=== PATIENT | female | born 2000 | race Hispanic/Latino ===

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

== ENCOUNTER 2018-05-14 19:32 | Emergency (ER) | payer OTHER ==
[2018-05-14] MEDS ORDERED: ACETAMINOPHEN 500 MG TAB ONE (20:36)
--- NOTE | 2018-05-14 21:15 | ER ---
Nurse's Notes [facility] Name: Milena Chew Age: 18 yrs Sex: Female : 2000 Arrival Date: 05/14/2018 Time: 19:34 Bed 21 Private MD: Diagnosis: Influenza due to identified novel influenza A virus Presentation: 05/14 19:36 Presenting complaint: Patient states: that that she has a runny nose, sore throat, fc nausea, cough that started 2 days ago. Transition of care: patient was not received from another setting of care. Onset of symptoms was May 12, 2018. Risk Assessment: Do you want to hurt yourself or someone else? Patient reports no desire to harm self or others. Initial Sepsis Screen: Does the patient meet any 2 criteria? HR > 90 bpm. Yes Does the patient have a suspected source of infection? No. Patient's initial sepsis screen is negative. Care prior to arrival: None. 19:36 Method Of Arrival: Ambulatory 19:36 Acuity: WILLIAM 4 fc DAYCARE DIRECTOR: 19:37 LMP 05/06/2018 fc Historical: - Allergies: 19:37 No Known Allergies; fc - Home Meds: 19:37 Vitamin Oral tab 1 tab once daily [Active]; fc - PMHx: 19:37 None; fc - PSHx: 19:37 None; fc - Immunization history:: Last tetanus immunization: up to date. - Social history:: Smoking status: Patient/guardian denies using tobacco. - Ebola Screening: : Patient negative for fever greater than or equal to 101.5 degrees Fahrenheit, and additional compatible Ebola Virus Disease symptoms Patient denies exposure to infectious person Patient denies travel to an Ebola-affected area in the 21 days before illness onset. Screenin:32 Abuse screen: Denies threats or abuse. Denies injuries from another. Nutritional mg2 screening: No deficits noted. Tuberculosis screening: No symptoms or risk factors identified. Fall Risk None identified. Assessment: 21:30 General: Appears in no apparent distress. comfortable, Behavior is calm, cooperative. mg2 Pain: Complains of pain in throat Pain does not radiate. Pain currently is 2 out of 10 on a pain scale. Quality of pain is described as aching, Pain began gradually, 2-3 days ago. Is intermittent. Neuro: Level of Consciousness is awake, alert, obeys commands, Oriented to person, place, time, situation. Neuro: Reports headache. Cardiovascular: Capillary refill < 3 seconds Patient's skin is warm and dry. Respiratory: Airway is patent Respiratory effort is even, unlabored, Respiratory pattern is regular, symmetrical. Respiratory: Reports cough that is congestion. GI: Abdomen is flat, non-distended. : No signs and/or symptoms were reported regarding the genitourinary system. EENT: Throat is reddened. Derm: Skin is intact, is healthy with good turgor, Skin is pink, warm \T\ dry. normal. Musculoskeletal: No signs and/or symptoms reported regarding the musculoskeletal system. Vital Signs: 19:38 BP 108 / 73; Pulse 116; Resp 20; Temp 100.8(O); Pulse Ox 99% on R/A; Weight 66.22 kg (R); Height 4 ft. 11 in. (149.86 cm) (R); Pain 8/10; 21:55 BP 110 / 78; Pulse 90; Resp 18; Temp 98.8(TE); Pulse Ox 100% on R/A; Pain 0/10; mg2 19:38 Body Mass Index 29.49 (66.22 kg, 149.86 cm) ED Course: 19:34 Patient arrived in ED. am2 19:37 Triage completed. 19:37 Arm band placed on Patient placed in an exam room, on a stretcher. 19:56 [facility] [place] 19:56 Denis De La Torre MD is Attending Physician. jr8 20:10 Justice Coppola RN is Primary Nurse. mg2 21:32 Patient has correct armband on for positive identification. mg2 21:32 No provider procedures requiring assistance completed. Patient did not have IV access mg2 during this emergency room visit. Administered Medications: 20:36 Drug: Tylenol 1000 mg Route: PO; mg2 Outcome: 21:14 Discharge ordered by . jr8 21:55 Discharged to home ambulatory, with family. mg2 21:55 Condition: stable 21:55 Discharge instructions given to patient, family, Instructed on discharge instructions, follow up and referral plans. medication usage, Demonstrated understanding of instructions, follow-up care, medications, Prescriptions given X 3. 21:55 Patient left the ED. mg2 Signatures: Jane Scott RN RN Yamil Millan PA PA jr8 Lanny Krishna am2 Justice Coppola RN RN mg2 Corrections: (The following items were deleted from the chart) 19:40 19:36 Initial Sepsis Screen: Does the patient meet any 2 criteria? No. Patient's fc initial sepsis screen is negative. Does the patient have a suspected source of infection? No. Patient's initial sepsis screen is negative. fc
--- NOTE | 2018-05-14 21:15 | EDPHYS ---
Physician Documentation [facility] Name: Milena Chew Age: 18 yrs Sex: Female : 2000 Arrival Date: 05/14/2018 Time: 19:34 Bed 21 Private MD: ED Physician Denis De La Torre HPI: 05/14 20:36 This 18 yrs old Female presents to ER via Ambulatory with complaints of Cough, jr8 Nausea, Runny Nose, Headache. 20:36 The patient or guardian reports cough, that is intermittent, described as mild, with no jr8 sputum. Onset: The symptoms/episode began/occurred gradually, 2 day(s) ago. Severity of symptoms: At their worst the symptoms were moderate, in the emergency department the symptoms are unchanged. Modifying factors: The symptoms are alleviated by nothing, the symptoms are aggravated by nothing. Associated signs and symptoms: Pertinent positives: fever, nausea, rhinorrhea, sore throat, vomiting. The patient has not experienced similar symptoms in the past. The patient has not recently seen a physician. BRAND ADVISOR: 19:37 LMP 05/06/2018 fc Historical: - Allergies: 19:37 No Known Allergies; fc - Home Meds: 19:37 Vitamin Oral tab 1 tab once daily [Active]; fc - PMHx: 19:37 None; fc - PSHx: 19:37 None; fc - Immunization history:: Last tetanus immunization: up to date. - Social history:: Smoking status: Patient/guardian denies using tobacco. - Ebola Screening: : Patient negative for fever greater than or equal to 101.5 degrees Fahrenheit, and additional compatible Ebola Virus Disease symptoms Patient denies exposure to infectious person Patient denies travel to an Ebola-affected area in the 21 days before illness onset. ROS: 20:36 Eyes: Negative for injury, pain, redness, and discharge, Neck: Negative for injury, jr8 pain, and swelling, Cardiovascular: Negative for chest pain, palpitations, and edema, Back: Negative for injury and pain, MS/Extremity: Negative for injury and deformity, Skin: Negative for injury, rash, and discoloration, Neuro: Negative for headache, weakness, numbness, tingling, and seizure. 20:36 Constitutional: Positive for body aches, chills, fever, malaise. 20:36 ENT: Positive for rhinorrhea, sinus congestion, sore throat, Negative for drainage from ear(s), ear pain. 20:36 Respiratory: Positive for cough, Negative for shortness of breath, sputum production, wheezing. 20:36 Abdomen/GI: Positive for nausea, vomiting, and diarrhea, Negative for abdominal pain, abdominal cramps, abdominal distension, hematemesis, black/tarry stool, rectal pain, rectal bleeding, bowel incontinence, flatulence. Exam: 20:36 Eyes: Pupils equal round and reactive to light, extra-ocular motions intact. Lids and jr8 lashes normal. Conjunctiva and sclera are non-icteric and not injected. Cornea within normal limits. Periorbital areas with no swelling, redness, or edema. ENT: Nares patent. No nasal discharge, no septal abnormalities noted. Tympanic membranes are normal and external auditory canals are clear. Oropharynx with no redness, swelling, or masses, exudates, or evidence of obstruction, uvula midline. Mucous membranes moist. Neck: Trachea midline, no thyromegaly or masses palpated, and no cervical lymphadenopathy. Supple, full range of motion without nuchal rigidity, or vertebral point tenderness. No Meningismus. Cardiovascular: Regular rate and rhythm with a normal S1 and S2. No gallops, murmurs, or rubs. Normal PMI, no JVD. No pulse deficits. Respiratory: Lungs have equal breath sounds bilaterally, clear to auscultation and percussion. No rales, rhonchi or wheezes noted. No increased work of breathing, no retractions or nasal flaring. Abdomen/GI: Soft, non-tender, with normal bowel sounds. No distension or tympany. No guarding or rebound. No evidence of tenderness throughout. Back: No spinal tenderness. No costovertebral tenderness. Full range of motion. Skin: Warm, dry with normal turgor. Normal color with no rashes, no lesions, and no evidence of cellulitis. MS/ Extremity: Pulses equal, no cyanosis. Neurovascular intact. Full, normal range of motion. Neuro: Awake and alert, GCS 15, oriented to person, place, time, and situation. Cranial nerves II-XII grossly intact. Motor strength 5/5 in all extremities. Sensory grossly intact. Cerebellar exam normal. Normal gait. Vital Signs: 19:38 BP 108 / 73; Pulse 116; Resp 20; Temp 100.8(O); Pulse Ox 99% on R/A; Weight 66.22 kg fc (R); Height 4 ft. 11 in. (149.86 cm) (R); Pain 8/10; 21:55 BP 110 / 78; Pulse 90; Resp 18; Temp 98.8(TE); Pulse Ox 100% on R/A; Pain 0/10; mg2 19:38 Body Mass Index 29.49 (66.22 kg, 149.86 cm) MDM: 19:56 Patient medically screened. jr8 21:13 Data reviewed: vital signs, nurses notes, lab test result(s), Flu: positive and as a jr8 result, I will discharge patient. Data interpreted: Pulse oximetry: on room air is 99 %. Interpretation: normal. Counseling: I had a detailed discussion with the patient and/or guardian regarding: the historical points, exam findings, and any diagnostic results supporting the discharge/admit diagnosis, lab results, the need for outpatient follow up, a family practitioner, to return to the emergency department if symptoms worsen or persist or if there are any questions or concerns that arise at home. 05/14 19:40 Order name: Strep; Complete Time: 21:13 05/14 19:40 Order name: Flu; Complete Time: 21:13 05/14 20:53 Order name: Throat Culture EDMS Administered Medications: 20:36 Drug: Tylenol 1000 mg Route: PO; mg2 Disposition: 05/14/18 21:14 Discharged to Home. Impression: Influenza due to identified novel influenza A virus. - Condition is Stable. - Discharge Instructions: Influenza, Adult. - Prescriptions for Tamiflu 75 mg Oral Capsule - take 1 capsule by ORAL route every 12 hours for 5 days; 10 capsule. Zofran 4 mg Oral Tablet - take 1 tablet by ORAL route every 8 hours As needed; 20 tablet. Tessalon Perles 100 mg Oral Capsule - take 1 capsule by ORAL route every 8 hours As needed; 15 capsule. - Medication Reconciliation Form, Thank You Letter, Antibiotic Education, Prescription Opioid Use form. - Follow up: Private Physician; When: 1 week; Reason: Recheck today's complaints, Continuance of care, Re-evaluation by your physician. - Problem is new. - Symptoms have improved. Addendum: 05/23/2018 07:38 Co-signature as Attending Physician, Denis De La Torre MD. r n Signatures: Dispatcher [employer] EDJane Tellez RN RN Denis De La Torre MD MD rn Roszak, Josh, PA PA jr8 Justice Coppola RN RN mg2 Corrections: (The following items were deleted from the chart) 05/14 21:55 21:14 05/14/2018 21:14 Discharged to Home. Impression: Influenza due to identified mg2 novel influenza A virus. Condition is Stable. Forms are Medication Reconciliation Form, Thank You Letter, Antibiotic Education, Prescription Opioid Use. Follow up: Private Physician; When: 1 week; Reason: Recheck today's complaints, Continuance of care, Re-evaluation by your physician. Problem is new. Symptoms have improved. jr8
== END 2018-05-14 21:55 | disposition home or self-care (01) ==
LOC: ER 19:32
DX: J10.1 Influenza due to other identified influenza virus with other respiratory manifestations (principal)
CPT/HCPCS: 87070; 87081; 87804; 99283

== ENCOUNTER 2018-08-07 23:14 | Emergency (ER) | payer OTHER, SELFPAY ==
--- OUTSIDE RECORDS SUMMARY | 2018-08-07 23:16 | XMS REPORT ---
:2000 [facility] Address [address] [place] [address] Dr. Coombs [address] [place] [id number] Care Team Providers Name Role Phone Unavailable Unavailable Unavailable Problems This patient has no known problems. Allergies, Adverse Reactions, Alerts This patient has no known allergies or adverse reactions. Medications This patient has no known medications.
[2018-08-08] MEDS ORDERED: NA CHLORIDE 0.9% 1,000 ML ONE (00:13)
[2018-08-08] MEDS ORDERED: ONDANSETRON 4 MG/2 ML VIAL ONE (00:13)
[2018-08-08 00:37] LABS: Absolute Lymphocytes (CBC) 1.2 K/uL (0.7-4.9); Absolute Monocytes 0.6 K/uL (0.1-1.3); Absolute Neutrophil 4.5 K/uL (1.8-8.0); Basophils % 0.2 % (0-1.3); Eosinophils % 0.3 % (0-4.4); Hematocrit 38.5 % (36.0-45.0); Lymphocytes % 18.6 % (15.3-44.8); MPV 10.4 fL (7.6-11.3); Monocytes % 9.2 % (3.3-12.3); RBC Red Blood Cell Count 4.25 M/uL (3.86-4.86)
[2018-08-08 00:40] LABS: Urine Blood NEGATIVE (NEG); Urine Glucose NEGATIVE (NEG); Urine Protein 1+ (NEG); Urine Specific Gravity 1.025 (1.005-1.030); Urine pH 5.5 (5.0-7.0)
[2018-08-08 00:48] LABS: ALT/SGPT 29 U/L (12-78); AST/SGOT 15 U/L (15-37); Albumin 3.9 g/dL (3.4-5.0); Alkaline Phosphatase 157 U/L (45-117); BUN Blood Urea Nitrogen 6 mg/dL (7-18); Bicarbonate 25 mmol/L (21-32); Bilirubin Direct 0.3 mg/dL (0-0.2); Bilirubin Total 1.4 mg/dL (0.2-1.0); Glucose Level 87 mg/dL (74-106); Lipase 56 U/L (73-393); Protein, Total 7.4 g/dL (6.4-8.2); Sodium Level 140 mmol/L (136-145)
[2018-08-08] MEDS ORDERED: POTASSIUM CL SA 10 MEQ TAB PO ONE (02:03)
[2018-08-08] MEDS ORDERED: KCL 20 MEQ/100 mL IVPB 20 MEQ/100 ML BAG IV ONE (02:04)
[2018-08-08] MEDS ORDERED: NA CHLORIDE 0.9% 500 ML ONE (02:05)
[2018-08-08 04:56] LABS: BUN Blood Urea Nitrogen 6 mg/dL (7-18); Bicarbonate 25 mmol/L (21-32); Glucose Level 77 mg/dL (74-106); Potassium 3.8 mmol/L (3.5-5.1); Sodium Level 144 mmol/L (136-145)
--- NOTE | 2018-08-08 05:01 | EDPHYS ---
Physician Documentation [facility] Name: Milena Chew Age: 18 yrs Sex: Female : 2000 Arrival Date: 08/07/2018 Time: 23:25 Bed 18 Private MD: ED Physician Nhan Light HPI: 08/07 23:56 This 18 yrs old Female presents to ER via Ambulatory with complaints of pkl Headache, Abdominal Pain, Nausea/Vomiting, control device pain. 23:56 The patient presents with abdominal pain in the upper abdomen. Onset: The pkl symptoms/episode began/occurred yesterday. The symptoms do not radiate. Associated signs and symptoms: Pertinent positives: nausea, vomiting, and diarrhea, headache. 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 - Social history:: Smoking status: Patient/guardian denies using tobacco. - Ebola Screening: : No symptoms or risks identified at this time. ROS: 23:56 Eyes: Negative for injury, pain, redness, and discharge, ENT: Negative for injury, pkl pain, and discharge, Neck: Negative for injury, pain, and swelling, Cardiovascular: Negative for chest pain, palpitations, and edema, Respiratory: Negative for shortness of breath, cough, wheezing, and pleuritic chest pain. 23:56 Abdomen/GI: Positive for abdominal pain, nausea, vomiting, and diarrhea, of the right upper quadrant and left upper quadrant. 23:56 Back: Negative for acute changes. 23:56 : Negative for urinary symptoms. 23:56 MS/extremity: Negative for acute changes. 23:56 Skin: Negative for rash. 23:56 Neuro: Positive for headache. Exam: 23:56 Head/Face: Normocephalic, atraumatic. Eyes: Pupils equal round and reactive to light, pkl extra-ocular motions intact. Lids and lashes normal. Conjunctiva and sclera are non-icteric and not injected. Cornea within normal limits. Periorbital areas with no swelling, redness, or edema. ENT: Nares patent. No nasal discharge, no septal abnormalities noted. Tympanic membranes are normal and external auditory canals are clear. Oropharynx with no redness, swelling, or masses, exudates, or evidence of obstruction, uvula midline. Mucous membranes moist. Neck: Trachea midline, no thyromegaly or masses palpated, and no cervical lymphadenopathy. Supple, full range of motion without nuchal rigidity, or vertebral point tenderness. No Meningismus. Chest/axilla: Normal chest wall appearance and motion. Nontender with no deformity. No lesions are appreciated. Cardiovascular: Regular rate and rhythm with a normal S1 and S2. No gallops, murmurs, or rubs. Normal PMI, no JVD. No pulse deficits. Respiratory: Lungs have equal breath sounds bilaterally, clear to auscultation and percussion. No rales, rhonchi or wheezes noted. No increased work of breathing, no retractions or nasal flaring. Abdomen/GI: Soft, non-tender, with normal bowel sounds. No distension or tympany. No guarding or rebound. No evidence of tenderness throughout. Back: No spinal tenderness. No costovertebral tenderness. Full range of motion. Skin: Warm, dry with normal turgor. Normal color with no rashes, no lesions, and no evidence of cellulitis. MS/ Extremity: Pulses equal, no cyanosis. Neurovascular intact. Full, normal range of motion. Neuro: Awake and alert, GCS 15, oriented to person, place, time, and situation. Cranial nerves II-XII grossly intact. Motor strength 5/5 in all extremities. Sensory grossly intact. Cerebellar exam normal. Normal gait. Vital Signs: 23:40 BP 110 / 80; Pulse 95; Resp 16; Temp 98.4(O); Pulse Ox 99% on R/A; Weight 70.31 kg; lp1 Height 4 ft. 11 in. (149.86 cm); Pain /10; 08/08 00:36 BP 108 / 64; Pulse 89; Resp 18; Pulse Ox 100% on R/A; Pain 5/10; ed1 02:20 BP 112 / 61; Pulse 86; Resp 16; Pulse Ox 100% on R/A; Pain 4/10; ed1 04:17 BP 109 / 76; Pulse 83; Resp 17; Pulse Ox 100% on R/A; Pain 4/10; ed1 08/07 23:40 Body Mass Index 31.31 (70.31 kg, 149.86 cm) lp1 MDM: 08/07 23:35 Patient medically screened. pkl 08/08 04:58 Data reviewed: vital signs, nurses notes, lab test result(s). pkl 08/07 23:48 Order name: Basic Metabolic Panel; Complete Time: 01:43 pkl 08/07 23:48 Order name: CBC with Diff; Complete Time: 01:43 pkl 08/07 23:48 Order name: Creatinine for Radiology; Complete Time: 01:43 pkl 08/07 23:48 Order name: Hepatic Function; Complete Time: 01:43 pkl 08/07 23:48 Order name: Lipase; Complete Time: 01:43 pkl 08/07 23:58 Order name: Urine Dipstick--Ancillary (enter results); Complete Time: 01:43 ar5 08/07 23:58 Order name: Urine --Ancillary (enter results); Complete Time: 01:43 ar5 08/08 03:25 Order name: Chem 7: Draw after potassium completes; Complete Time: 04:57 ed1 08/07 23:48 Order name: IV Saline Lock; Complete Time: 00:04 pkl 08/07 23:48 Order name: Labs collected and sent; Complete Time: 00:04 pkl Administered Medications: 00:06 Drug: NS 0.9% 1000 ml Route: IV; Rate: 1000 ml; Site: right antecubital; ed1 02:19 Follow up: IV Status: Completed infusion; IV Intake: 1000ml ed1 00:06 Drug: Zofran 4 mg Route: IVP; Site: right antecubital; ed1 02:19 Follow up: Response: No adverse reaction; Nausea is decreased ed1 02:18 Not Given (Patient Refused): LoMOTIL 2 tabs PO once ed1 02:18 Drug: K-Dur 20 mEq Route: PO; ed1 03:00 Follow up: Response: No adverse reaction ed1 02:18 Drug: Potassium Chloride 20 mEq Route: IV; Rate: calculated rate; Site: right ed1 antecubital; 04:18 Follow up: Response: No adverse reaction; IV Status: Completed infusion; IV Intake: ed1 100ml 02:19 Drug: NS 0.9% 500 ml Route: IV; Rate: bolus; Site: right antecubital; ed1 04:36 Follow up: IV Status: Completed infusion; IV Intake: 500ml ed1 Disposition: 08/08/18 05:00 Discharged to Home. Impression: Gastroenteritis. Hypokalemia. - Condition is Stable. - Prescriptions for Zofran 4 mg Oral Tablet - take 1 tablet by ORAL route every 12 hours As needed; 6 tablet. - Medication Reconciliation Form, Thank You Letter, Antibiotic Education, Prescription Opioid Use, Work release form form. - Follow up: Private Physician; When: 2 - 3 days; Reason: Re-evaluation by your physician. - Problem is new. - Symptoms have improved. Signatures: Dispatcher [employer] EDCT Nhan Light MD MD pkl Crystal Dial RN RN ed1 Guadalupe Elliott RN RN lp1 Corrections: (The following items were deleted from the chart) 05:08 05:00 08/08/2018 05:00 Discharged to Home. Impression: Gastroenteritis. Hypokalemia. ed1 Condition is Stable. Forms are Medication Reconciliation Form, Thank You Letter, Antibiotic Education, Prescription Opioid Use. Follow up: Private Physician; When: 2 - 3 days; Reason: Re-evaluation by your physician. Problem is new. Symptoms have improved. pkl
--- NOTE | 2018-08-08 05:01 | ER ---
Nurse's Notes [facility] Name: Milena Chew Age: 18 yrs Sex: Female : 2000 Arrival Date: 08/07/2018 Time: 23:25 Bed 18 Private MD: Diagnosis: Gastroenteritis. Hypokalemia Presentation: 08/07 23:38 Presenting complaint: Patient states: Mid abdominal pain that began yesterday, worse lp1 today; Vomited x4; Denies any urinary pain, diarrhea. Transition of care: patient was not received from another setting of care. Onset of symptoms was August 06, 2018. Risk Assessment: Do you want to hurt yourself or someone else? Patient reports no desire to harm self or others. Initial Sepsis Screen: Does the patient meet any 2 criteria? No. Patient's initial sepsis screen is negative. Does the patient have a suspected source of infection? No. Patient's initial sepsis screen is negative. Care prior to arrival: None. 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 - Social history:: Smoking status: Patient/guardian denies using tobacco. - Ebola Screening: : No symptoms or risks identified at this time. Screenin:40 Abuse screen: Denies threats or abuse. Denies injuries from another. Nutritional lp1 screening: No deficits noted. Tuberculosis screening: No symptoms or risk factors identified. Fall Risk None identified. Assessment: 23:57 General: Appears uncomfortable, Behavior is calm, cooperative. Pain: Complains of pain ed1 in abdomen Pain does not radiate. Pain currently is 7 out of 10 on a pain scale. Quality of pain is described as aching, crampy, Pain began 1 day ago. Is continuous. Neuro: Level of Consciousness is awake, alert, obeys commands, Oriented to person, place, time, situation. Cardiovascular: Denies chest pain, Heart tones S1 S2 present. Respiratory: Airway is patent Respiratory effort is even, unlabored, Respiratory pattern is regular, symmetrical, Breath sounds are clear bilaterally. GI: Abdomen is non-distended, Bowel sounds present X 4 quads. Abd is soft and non tender X 4 quads. Reports nausea, vomiting, Patient currently denies diarrhea. : Denies burning with urination. EENT: No signs and/or symptoms were reported regarding the EENT system. Derm: Skin is intact, is healthy with good turgor, Skin is dry, Skin is normal, Skin temperature is warm. Musculoskeletal: Circulation, motion, and sensation intact. Range of motion: intact in all extremities. 08/08 00:36 Reassessment: Patient appears in no apparent distress at this time. Patient and/or ed1 family updated on plan of care and expected duration. Pain level reassessed. Patient is alert, oriented x 3, equal unlabored respirations, skin warm/dry/pink. Patient states feeling better. Patient states symptoms have improved. 02:20 Reassessment: Patient appears in no apparent distress at this time. Patient and/or ed1 family updated on plan of care and expected duration. Pain level reassessed. Patient is alert, oriented x 3, equal unlabored respirations, skin warm/dry/pink. Patient states feeling better. Patient states symptoms have improved. 04:17 Reassessment: Patient appears in no apparent distress at this time. Patient and/or ed1 family updated on plan of care and expected duration. Pain level reassessed. Patient is alert, oriented x 3, equal unlabored respirations, skin warm/dry/pink. IV potassium complete, Chem 7 drawn Patient states feeling better. Patient states symptoms have improved. Vital Signs: 08/07 23:40 BP 110 / 80; Pulse 95; Resp 16; Temp 98.4(O); Pulse Ox 99% on R/A; Weight 70.31 kg; lp1 Height 4 ft. 11 in. (149.86 cm); Pain 7/10; 08/08 00:36 BP 108 / 64; Pulse 89; Resp 18; Pulse Ox 100% on R/A; Pain 5/10; ed1 02:20 BP 112 / 61; Pulse 86; Resp 16; Pulse Ox 100% on R/A; Pain 4/10; ed1 04:17 BP 109 / 76; Pulse 83; Resp 17; Pulse Ox 100% on R/A; Pain 4/10; ed1 08/07 23:40 Body Mass Index 31.31 (70.31 kg, 149.86 cm) lp1 ED Course: 08/07 23:25 Patient arrived in ED. am2 23:35 Nhan Light MD is Attending Physician. pkl 23:39 Triage completed. lp1 23:40 Arm band placed on. lp1 23:53 Crystal Dial, RN is Primary Nurse. ed1 23:57 Patient has correct armband on for positive identification. Placed in gown. Bed in low ed1 position. Call light in reach. Adult w/ patient. Pulse ox on. NIBP on. Warm blanket given. 08/08 00:04 Initial lab(s) drawn, by me, sent to lab. Inserted saline lock: 22 gauge in right lt1 antecubital area, using aseptic technique. 04:17 Repeat lab(s) drawn. by me, sent to lab. ed1 05:07 No provider procedures requiring assistance completed. IV discontinued, intact, ed1 bleeding controlled, No redness/swelling at site. Pressure dressing applied. Administered Medications: 00:06 Drug: NS 0.9% 1000 ml Route: IV; Rate: 1000 ml; Site: right antecubital; ed1 02:19 Follow up: IV Status: Completed infusion; IV Intake: 1000ml ed1 00:06 Drug: Zofran 4 mg Route: IVP; Site: right antecubital; ed1 02:19 Follow up: Response: No adverse reaction; Nausea is decreased ed1 02:18 Not Given (Patient Refused): LoMOTIL 2 tabs PO once ed1 02:18 Drug: K-Dur 20 mEq Route: PO; ed1 03:00 Follow up: Response: No adverse reaction ed1 02:18 Drug: Potassium Chloride 20 mEq Route: IV; Rate: calculated rate; Site: right ed1 antecubital; 04:18 Follow up: Response: No adverse reaction; IV Status: Completed infusion; IV Intake: ed1 100ml 02:19 Drug: NS 0.9% 500 ml Route: IV; Rate: bolus; Site: right antecubital; ed1 04:36 Follow up: IV Status: Completed infusion; IV Intake: 500ml ed1 Intake: 02:19 IV: 1000ml; Total: 1000ml. ed1 04:18 IV: 100ml; Total: 1100ml. ed1 04:36 IV: 500ml; Total: 1600ml. ed1 Outcome: 05:00 Discharge ordered by . kanu 05:07 Discharged to home ambulatory. ed1 05:07 Condition: good 05:07 Discharge instructions given to patient, Instructed on discharge instructions, follow up and referral plans. medication usage, Demonstrated understanding of instructions, follow-up care, medications, Prescriptions given X 1. 05:08 Patient left the ED. ed1 Signatures: Nhan Light MD MD pkl Riggs, Erika RN RN ed1 Guadalupe Elliott RN RN lp1 Lanny Krishna am2 Mitzi Mireles 1
== END 2018-08-08 05:08 | disposition home or self-care (01) ==
LOC: ER 23:14
DX: K52.9 Noninfective gastroenteritis and colitis, unspecified (principal); E87.6 Hypokalemia
CPT/HCPCS: 36415; 80048; 80076; 81003; 81025; 83690; 85025; 96361; 96365; 96366; 96375; 99284; J2405; J7030

== ENCOUNTER 2019-07-28 12:33 | Inpatient (IN) | payer OTHER ==
--- OUTSIDE RECORDS SUMMARY | 2019-07-28 12:35 | XMS REPORT ---
:2000 [facility] Address [address] [place] [address] Dr. Coombs [address] [place] [id number] Care Team Providers Name Role Phone Unavailable Unavailable Unavailable Problems This patient has no known problems. Allergies, Adverse Reactions, Alerts This patient has no known allergies or adverse reactions. Medications This patient has no known medications.
[2019-07-28] MEDS ORDERED: Ringers Lactate 1,000 ML IV PRN (13:31)
[2019-07-28] MEDS ORDERED: METHYLERGONOVINE 0.2MG/ML AMP IM PRN (13:31)
[2019-07-28] MEDS ORDERED: BUTORPHANOL 1 MG/ML INJ IV PRN (13:31)
[2019-07-28] MEDS ORDERED: PROMETHAZINE INJ 25 MG/ML AMP IM PRN (13:31)
[2019-07-28] MEDS ORDERED: CARBOPROST TROME 250 MCG/ML IM PRN (13:31)
[2019-07-28 13:59] LABS: Absolute Lymphocytes (CBC) 1.8 K/uL (0.7-4.9); Basophils % 0.2 % (0-1.3); Hematocrit 34.3 % (36.0-45.0); Lymphocytes % 9.3 % (15.3-44.8); RBC Red Blood Cell Count 3.56 M/uL (3.86-4.86)
[2019-07-28] MEDS ORDERED: LIDOCAINE 1% MPF 30 ML VIAL ONE (13:59)
[2019-07-28] MEDS ORDERED: Ringers Lactate 1,000 ML IV SCH (14:00)
[2019-07-28] MEDS ORDERED: OXYTOCIN/LR 20 UNIT/1,000 ML BAG IV SCH ×2 (14:00→15:00)
[2019-07-28 14:13] VITALS: BMI 35.5
[2019-07-28] MEDS ORDERED: DIPHENHYDRAMINE 25 MG TAB/CAP PO PRN (14:51)
[2019-07-28] MEDS ORDERED: Oxycodone HCl/Acetaminophen 1 TAB TAB PO PRN ×2 (14:51)
[2019-07-28] MEDS ORDERED: BISACODYL 10 MG RECTAL SUPP RECT PRN (14:51)
[2019-07-28] MEDS ORDERED: DOCUSATE NA/SENNA CONC 1 TAB PO PRN (14:51)
[2019-07-28] MEDS ORDERED: ACETAMINOPHEN 500 MG TAB PO PRN (14:51)
[2019-07-28] MEDS ORDERED: miSOPROStoL 100 MCG TAB ONE (14:59)
[2019-07-28] MEDS: METHYLERGONOVINE 0.2 MG TAB PO PRN ×2 (16:00→20:10)
[2019-07-28] MEDS: IBUPROFEN 600 MG TAB PO PRN (16:30)
--- NOTE | 2019-07-28 18:21 | PREOPHP ---
Date of Admission: 07/28/2019 This is a 19-year-old 2, para 1, 37 weeks 6 days, states she thought she might have broken he r bag of water this morning at 4 a.m., did not really start having major contractions until a couple hours afterwards, came into labor and delivery, noted to be ruptured membranes, clear fluid as best w e can tell. 4-5 cm that time. Within 30 minutes, she is now 6 and 90% effaced, 0 station. Baby is having some variables with contractions but nothing dramatic. She is Rh positive, immune to rubella. Negative beta strep screen. She went natural with the first delivery and it looks like she wants t o do the same thing at this time. Full labor talk given. Anticipate delivery relatively soon. MELIZA/KYLE Voice ID: [id number]
[2019-07-28] MEDS ORDERED: Ringers Lactate 1,000 ML IV ONE (20:59)
--- NOTE | 2019-07-28 23:41 | DN ---
Surgeon: Giovany Tuttle MD A 19-year-old, 2, para 1, 37 weeks 6 days, came in with spontaneous rupture of membranes and active labor, 4 to 5 cm on admission, went rapidly to complete. Stadol 1 mg IV, Phenergan 25 mg IM d uring the first stage of labor. Second stage of approximately 20 minutes. Spontaneous vaginal deliv ashleigh of a 6 pounds, 13 ounce female. Apgars 9 and 9. Loose nuchal cord x1. Small first-degree lacer ation above the urethra, local infiltration, interrupted locked sutures approximately 4 to 5 total fo r hemostasis. Schultze delivery of the placenta, was inspected and noted to be intact and normal. M ild uterine hypotonus, 0.2 mg of Methergine IM as well as IV drip Pitocin and massage. Estimated blo od loss 450 mL. Uterus contracted down well. Rh positive, immune to Rubella. Negative beta strep s creen. Final Diagnoses: Term intrauterine at 37 weeks 6 days, spontaneous rupture of membranes, s pontaneous labor, vaginal delivery, mild uterine hypertonicity, nuchal cord x1. NBC/MODL Voice ID: [id number] Report ID: [id number]
[2019-07-29] MEDS: METHYLERGONOVINE 0.2 MG TAB PO PRN ×2 (00:10→05:30)
[2019-07-29] MEDS: IBUPROFEN 600 MG TAB PO PRN (16:30)
[2019-07-29 20:07] VITALS: BP 102/69; TEMP 97.9
--- NOTE | 2019-07-29 21:52 | DS ---
Date of Discharge: 07/29/2019 History: A 19-year-old, 2, para 1, 37 weeks 6 days, came in with rupture of membranes, activ e labor, went rapidly to complete, had Stadol 1 mg IV, Phenergan 25 mg IM. Second stage of 20 minute s or thereabouts. Spontaneous vaginal delivery of a 6-pound 13-ounce female. Apgars 9 and 9. Loose nuchal cord. Delivery of the placenta, which is inspected and noted be intact and normal, mild hypo tonus 0.2 mg of Methergine IM, followed by Cytotec 100 mcg IV drip Pitocin and massage. Estimated bl ood loss time of delivery 450 mL, total probably in the 550 mL range. ; afebrile, ambulati ng and voiding. Lochia is very scant at this point. She will be dismissed later today, to report ba ck to my office in 6 weeks for followup, to report any temperature elevation of 100 degrees or greate r, severe pain, heavy bleeding, or any other type of abnormality. Requests no analgesics on dismissa l. She has had her Tdap immunization. Beta strep was negative. Final Diagnoses: Intrauterine gestation, 37 weeks 6 days, spontaneous rupture of membranes, vaginal delivery, loose nuchal cord, mild uterine hypotonus. MELIZA/KYLE Voice ID: [id number] Report ID: [id number]
[2019-07-30 02:09] LABS: RPR (Rapid Plasma Reagin) NON-REACT (NON-REACT)
[2019-08-01 04:34] LABS: HBsAG Nonreactive (Nonreactive)
== END 2019-07-29 19:50 | disposition home or self-care (01) | DRG 807 ==
LOC: L&D 12:33 → 2ND-WC 13:20
PROVIDERS: ADMIT Specialist; ATTEND Specialist
PROC: 10E0XZZ Delivery of Products of Conception, External Approach (ICD-10-PCS; principal; 2019-07-28)
PROC: 0HQ9XZZ Repair Perineum Skin, External Approach (ICD-10-PCS; 2019-07-28)
DX: O71.5 Other obstetric injury to pelvic organs (principal); Z37.0 Single live birth; O69.81X0 Labor and delivery complicated by cord around neck, without compression, not applicable or unspecified; O62.2 Other uterine inertia; Z3A.37 37 weeks gestation of pregnancy
CPT/HCPCS: 36415; 85025; 86592; 86901; 87340; J0595; J2210; J2550; J2590; J7120

== ENCOUNTER 2019-11-19 16:30 | Emergency (ER) | payer OTHER ==
--- NOTE | 2019-11-19 18:10 | EDPHYS ---
Physician Documentation [facility] Name: Milena Chew Age: 19 yrs Sex: Female : 2000 Arrival Date: 11/19/2019 Time: 16:34 Bed 6 Private MD: None, None ED Physician Alonso Dan HPI: 11/18 18:10 This 19 yrs old Female presents to ER via Ambulatory with complaints of jr8 Headache. 18:10 The patient complains of pain to the forehead. The patient describes the headache as a jr8 pressure. Onset: The symptoms/episode began/occurred gradually, 1 month(s) ago. Associated signs and symptoms: Pertinent positives: Photophobia. Severity of symptoms: At its worst the pain was mild, in the emergency department the pain is unchanged. Headache History: Denies prior headaches. The symptoms are alleviated by nothing. the symptoms are aggravated by lights, movement. The patient has not experienced similar symptoms in the past. The patient has not recently seen a physician. Patient stated that she has had intermittent headaches that come and go and is better with NSAID. Stated that she wanted to be evaluated to make sure it is nothing else . 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 - Social history:: Smoking status: Patient denies any tobacco usage or history of. ROS: 18:10 Eyes: Negative for injury, pain, redness, and discharge, ENT: Negative for injury, jr8 pain, and discharge, Neck: Negative for injury, pain, and swelling, Cardiovascular: Negative for chest pain, palpitations, and edema, Respiratory: Negative for shortness of breath, cough, wheezing, and pleuritic chest pain, Abdomen/GI: Negative for abdominal pain, nausea, vomiting, diarrhea, and constipation, Back: Negative for injury and pain, MS/Extremity: Negative for injury and deformity, Skin: Negative for injury, rash, and discoloration. 18:10 Neuro: Positive for headache. Exam: 18:10 Eyes: Pupils equal round and reactive to light, extra-ocular motions intact. Lids and jr8 lashes normal. Conjunctiva and sclera are non-icteric and not injected. Cornea within normal limits. Periorbital areas with no swelling, redness, or edema. ENT: Nares patent. No nasal discharge, no septal abnormalities noted. Tympanic membranes are normal and external auditory canals are clear. Oropharynx with no redness, swelling, or masses, exudates, or evidence of obstruction, uvula midline. Mucous membranes moist. Neck: Trachea midline, no thyromegaly or masses palpated, and no cervical lymphadenopathy. Supple, full range of motion without nuchal rigidity, or vertebral point tenderness. No Meningismus. Cardiovascular: Regular rate and rhythm with a normal S1 and S2. No gallops, murmurs, or rubs. Normal PMI, no JVD. No pulse deficits. Respiratory: Lungs have equal breath sounds bilaterally, clear to auscultation and percussion. No rales, rhonchi or wheezes noted. No increased work of breathing, no retractions or nasal flaring. Abdomen/GI: Soft, non-tender, with normal bowel sounds. No distension or tympany. No guarding or rebound. No evidence of tenderness throughout. Back: No spinal tenderness. No costovertebral tenderness. Full range of motion. Skin: Warm, dry with normal turgor. Normal color with no rashes, no lesions, and no evidence of cellulitis. MS/ Extremity: Pulses equal, no cyanosis. Neurovascular intact. Full, normal range of motion. Neuro: Awake and alert, GCS 15, oriented to person, place, time, and situation. Cranial nerves II-XII grossly intact. Motor strength 5/5 in all extremities. Sensory grossly intact. Cerebellar exam normal. Normal gait. Vital Signs: 16:56 BP 108 / 84; Pulse 109; Resp 18 S; Temp 97.7(TE); Pulse Ox 100% on R/A; Weight 77.11 kg ca1 (R); Height 4 ft. 11 in. (149.86 cm) (R); Pain 7/10; 18:31 BP 111 / 75; Pulse 87; Resp 17; Temp 97.8; Pulse Ox 100% ; bp 16:56 Body Mass Index 34.34 (77.11 kg, 149.86 cm) ca1 MDM: 18:01 Patient medically screened. jr8 18:09 Data reviewed: vital signs, nurses notes, and as a result, I will discharge patient. jr8 Data interpreted: Pulse oximetry: on room air is 100 %. Interpretation: normal. Counseling: I had a detailed discussion with the patient and/or guardian regarding: the historical points, exam findings, and any diagnostic results supporting the discharge/admit diagnosis, the need for outpatient follow up, a neurologist, to return to the emergency department if symptoms worsen or persist or if there are any questions or concerns that arise at home. Administered Medications: 18:20 Drug: TORadol - Ketorolac 15 mg Route: IM; Site: right gluteus; bp 18:31 Follow up: Response: Pain is decreased bp Disposition: 11/19/19 18:09 Discharged to Home. Impression: Headache. - Condition is Stable. - Discharge Instructions: Migraine Headache. - Prescriptions for Fioricet 50- 325-40 mg Oral tablet - take 2 tablet by ORAL route every 4 hours as needed not to exceed 6 tablets per 24hrs; 20 tablet. - Medication Reconciliation Form, Thank You Letter, Antibiotic Education, Prescription Opioid Use form. - Follow up: Shan Yi MD; When: 2 - 3 days; Reason: Recheck today's complaints, Continuance of care, Re-evaluation by your physician. - Problem is new. - Symptoms have improved. Addendum: 11/21/2019 21:17 Co-signature as Attending Physician, Alonso Dan MD Did not see or evaluate patient. p s1 I was available in the ED for consultation. Signature for administrative purposes. . Signatures: Yamil Millan PA PA jr8 Deshaun Mane RN RN bp Singer, Phillip, MD MD ps1 Lucy An RN RN ca1 Corrections: (The following items were deleted from the chart) 07 18:32 18:09 11/19/2019 18:09 Discharged to Home. Impression: Headache. Condition is Stable. bp Forms are Medication Reconciliation Form, Thank You Letter, Antibiotic Education, Prescription Opioid Use. Follow up: Shan Yi; When: 2 - 3 days; Reason: Recheck today's complaints, Continuance of care, Re-evaluation by your physician. Problem is new. Symptoms have improved. jr8
--- NOTE | 2019-11-19 18:10 | ER ---
Nurse's Notes [facility] Name: Milena Chew Age: 19 yrs Sex: Female : 2000 Arrival Date: 11/19/2019 Time: 16:34 Bed 6 Private MD: None, None Diagnosis: Headache Presentation: 11/18 16:56 Chief complaint: Patient states: Headache on and off x 2 months, always in the morning ca1 when I wake up and would just go away. Yesterday, headache was persistent with N/V. Coronavirus screen: Proceed with normal triage. Patient denies a cough. Patient denies shortness of breath or difficulty breathing. Patient denies measured and/or subjective temperature greater than 100.4F prior to today's visit. Patient denies travel on a cruise ship or to a country the [facility] currently lists as an affected area. Patient denies contact with known and/or suspected case of COVID-19. Ebola Screen: Patient negative for fever greater than or equal to 101.5 degrees Fahrenheit, and additional compatible Ebola Virus Disease symptoms Patient denies exposure to infectious person. Patient denies travel to an Ebola-affected area in the 21 days before illness onset. No symptoms or risks identified at this time. Initial Sepsis Screen: Does the patient meet any 2 criteria? No. Patient's initial sepsis screen is negative. Does the patient have a suspected source of infection? No. Patient's initial sepsis screen is negative. Risk Assessment: Do you want to hurt yourself or someone else? Patient reports no desire to harm self or others. Onset of symptoms was November 19, 2019. 16:56 Method Of Arrival: Ambulatory ca1 16:56 Acuity: WILLIAM 3 ca1 Triage Assessment: 17:54 Headache History: The patient has had previous headaches and this one is similar to bp previous episodes. General: Appears in no apparent distress. uncomfortable, Behavior is cooperative, appropriate for age, anxious. Pain: Pain currently is 4 out of 10 on a pain scale. Pain began 2 MONTHS AGO Also complains of nausea. EENT: No deficits noted. Neuro: No deficits noted. Cardiovascular: No deficits noted. Respiratory: No deficits noted. GI: No signs and/or symptoms were reported involving the gastrointestinal system. : No signs and/or symptoms were reported regarding the genitourinary system. Derm: No deficits noted. Musculoskeletal: No deficits noted. 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 - Social history:: Smoking status: Patient denies any tobacco usage or history of. Screenin:55 Abuse screen: Denies threats or abuse. Denies injuries from another. Nutritional bp screening: No deficits noted. Tuberculosis screening: No symptoms or risk factors identified. Fall Risk None identified. Assessment: 17:55 General: SEE TRIAGE NOTE. bp 18:31 Reassessment: PT D/C HOME AMBULATORY, DX WITH MIGRAINE ENGLISH. bp Vital Signs: 16:56 BP 108 / 84; Pulse 109; Resp 18 S; Temp 97.7(TE); Pulse Ox 100% on R/A; Weight 77.11 kg ca1 (R); Height 4 ft. 11 in. (149.86 cm) (R); Pain 7/10; 18:31 BP 111 / 75; Pulse 87; Resp 17; Temp 97.8; Pulse Ox 100% ; bp 16:56 Body Mass Index 34.34 (77.11 kg, 149.86 cm) ca1 ED Course: 16:34 Patient arrived in ED. mr 16:34 None, None is Private Physician. mr 16:58 Triage completed. ca1 16:59 Arm band placed on right wrist. ca1 17:54 Deshaun Mane, RN is Primary Nurse. bp 17:55 Patient has correct armband on for positive identification. Bed in low position. Call bp light in reach. Side rails up X2. 18:08 Yamil Millan PA is PHCP. jr8 18:08 Alonso Dan MD is Attending Physician. jr8 18:09 Shan Yi MD is Referral Physician. jr8 18:31 No provider procedures requiring assistance completed. Patient did not have IV access bp during this emergency room visit. Administered Medications: 18:20 Drug: TORadol - Ketorolac 15 mg Route: IM; Site: right gluteus; bp 18:31 Follow up: Response: Pain is decreased bp Outcome: 18:09 Discharge ordered by MD. zurita 18:31 Discharged to home ambulatory. bp 18:31 Condition: stable 18:31 Discharge instructions given to patient, Instructed on discharge instructions, follow up and referral plans. medication usage, Demonstrated understanding of instructions, follow-up care, medications, Prescriptions given X 1. 18:32 Patient left the ED. bp Signatures: ValdiviaIna mr Yana, Yamil, Deshaun Kang RN RN bp Lucy An RN RN ca1
[2019-11-19] MEDS ORDERED: KETOROLAC 30 MG/ML INJ ONE (18:32)
[2019-11-19 18:58] VITALS: O2SAT 100
[2019-11-19 18:59] VITALS: BP 111/75; TEMP 97.8
--- OUTSIDE RECORDS SUMMARY | 2019-11-20 01:42 | XMS REPORT | Continuity of Care Document ---
:2000 Author Organization [facility] t Address [address] [place] [address] Care Team Providers Name Role Phone Emelia Blandon Attending Clinician Ultrasound Attending Clinician Unavailable Problems This patient has no known problems. Allergies, Adverse Reactions, Alerts This patient has no known allergies or adverse reactions. Medications This patient has no known medications. Procedures This patient has no known procedures. Encounters Start End Encounter Admission Attending Care Care Encounter Source Date/Time Date/Time Type Type Clinicians Facility Department ID 2019-01-17 2019-01-17 Abstract MAGNUS Hernandez [id number] 00:00:00 00:00:00 Katiuska Kapoor SEO INTERN [id number] [facility] [id number] MATERNAL [id number] & CHILD [address] [facility] 2019-01-16 2019-01-16 Superintendent Pier Ultrasound, [place] [id number] 15:33:17 16:03:17 Visit Taz [employer] INTERN [id number] [facility] [id number] MATERNAL [id number] & CHILD [address] [facility] 2019-01-16 2019-01-16 Routine MAGNUS Hernandez [id number] 14:56:03 15:30:55 Katiuska C [employer] INTERN [id number] Visit [facility]IONAL [id number] MATERNAL [id number] & CHILD 107 [facility] 2018-12-28 2018-12-28 Telephone [facility] [id number] 00:00:00 00:00:00 Katiuska C [employer] INTERN [id number] [facility] [id number] MATERNAL [id number] & CHILD 107 [facility] Results This patient has no known results.
== END 2019-11-19 18:32 | disposition home or self-care (01) ==
LOC: ER 16:30
DX: R51 Headache (principal)
CPT/HCPCS: 96372; 99283